=== PATIENT | male | born 1965 | race Caucasian/White ===

== ENCOUNTER 2019-06-25 00:10 | Emergency (ER) | payer SELFPAY ==
[~2019-06-25] VITALS: Ht 175.3 cm; Wt 81.6 kg
--- NOTE | 2019-06-25 00:12 | NUR ---
PT AAOX4. AMBULATORY. PT C/O R RIB PAIN S/P TRIP AND FALL. -KO. FAMILY MEMBER AT BEDSIDE. PT SAT 90 ON ROOM AIR BUT HAS SOB DUE TO PAIN. PT PLACED ON 2L NC SAT 96. NO ACUTE DISTRESS NOTED. AWAITING MD FOR EVAL.
[2019-06-25] MEDS ORDERED: MORPHINE SULFATE INJ 2 MG/ML DISP.SYRIN ONE (00:16)
[2019-06-25] MEDS ORDERED: MORPHINE SULFATE INJ 4 MG/ML DISP.SYRIN ONE (00:16)
[2019-06-25] MEDS ORDERED: KETOROLAC TROMETHAMINE 15 MG/ML VIAL ONE (00:16)
[2019-06-25] MEDS ORDERED: TDAP [DIPH/PERTUSSIS/TET] 0.5 ML VIAL IM ONE ×2 (00:17→00:30)
[2019-06-25] MEDS ORDERED: KETOROLAC TROMETHAMINE INJ 30 MG/ML VIAL IV ONE (00:30)
[2019-06-25] MEDS ORDERED: MORPHINE SULFATE INJ 2 MG/ML DISP.SYRIN IV ONE (00:30)
--- NOTE | 2019-06-25 00:31 | NUR ---
XRAY AT BEDSIDE
[2019-06-25] MEDS ORDERED: oxyCODONE/APAP (5/325 MG) 1 UDTAB TABLET PO ONE (01:00)
--- NOTE | 2019-06-25 01:02 | NUR ---
IV removed. Catheter intact and site benign. Pressure and 4x4 applied to site. No bleeding noted.
[2019-06-25] MEDS ORDERED: oxyCODONE/APAP (5/325 MG) 1 UDTAB TABLET ONE (01:04)
--- NOTE | 2019-06-25 01:17 | NUR ---
Patient discharged to home in stable condition. Written and verbal after care instructions given. Patient verbalizes understanding of instruction, RX, and the use of Incentive spirometer. pt ambulatory with a steady gait.
[2019-06-25 01:19] VITALS: BP 124/86
== END 2019-06-25 01:25 | disposition home or self-care (01) ==
LOC: ER 00:13
DX: S22.41XA Multiple fractures of ribs, right side, initial encounter for closed fracture (principal); W01.0XXA Fall on same level from slipping, tripping and stumbling without subsequent striking against object, initial encounter; Y93.89 Activity, other specified; Y92.89 Other specified places as the place of occurrence of the external cause; Y99.8 Other external cause status
CPT/HCPCS: 71100; 90471; 90715; 96374; 96375; 99283; J1885; J2270 ×2